=== PATIENT | male | born 2000 | race Two or more races ===

== ENCOUNTER 2022-10-19 16:43 | Emergency (ER) | payer OTHER ==
[~2022-10-19] VITALS: Ht 180.3 cm; Wt 82.6 kg
[2022-10-19] MEDS ORDERED: IBUP-1456 PO (21:59)
[2022-10-19 22:04] VITALS: BP 123/72
== END 2022-10-19 22:21 | disposition home or self-care (01) ==
LOC: ER 16:43
DX: S63.602A Unspecified sprain of left thumb, initial encounter (principal); W18.09XA Striking against other object with subsequent fall, initial encounter; Y93.89 Activity, other specified; Y92.89 Other specified places as the place of occurrence of the external cause; Y99.8 Other external cause status
CPT/HCPCS: 73130